=== PATIENT | male | born 1965 | race African-American/Black ===

== ENCOUNTER 2020-09-21 14:23 | Emergency (ER) | payer OTHER | END 2020-09-21 17:50 | disposition home or self-care (01) | LOC: FER 14:23 | DX: S80.11XA Contusion of right lower leg, initial encounter (principal); W22.8XXA Striking against or struck by other objects, initial encounter; Y92.89 Other specified places as the place of occurrence of the external cause; Y99.0 Civilian activity done for income or pay | CPT/HCPCS: 73590; 93971 ==